=== PATIENT | male | born 1935 | race Caucasian/White ===

== ENCOUNTER 2020-05-12 23:20 | Emergency (ER) | payer MEDICARE ==
[2020-05-12] MEDS ORDERED: Mupirocin Oint 22 GM Tube TOP ONE (23:53)
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
== END 2020-05-13 00:02 | disposition home or self-care (01) ==
LOC: DL.ED 23:20
DX: S51.811A Laceration without foreign body of right forearm, initial encounter (principal); M25.422 Effusion, left elbow; I10 Essential (primary) hypertension; Z88.1 Allergy status to other antibiotic agents; Z88.5 Allergy status to narcotic agent; Z88.8 Allergy status to other drugs, medicaments and biological substances; Z88.0 Allergy status to penicillin; Z79.899 Other long term (current) drug therapy; W01.0XXA Fall on same level from slipping, tripping and stumbling without subsequent striking against object, initial encounter
CPT/HCPCS: 99282; A9270

== ENCOUNTER 2020-06-15 15:19 | Emergency (ER) | payer MEDICARE ==
--- NOTE | 2020-06-15 15:19 | EDM.PDOC ---
ED HPI GENERAL MEDICAL PROBLEM - General Chief Complaint: Upper Extremity Injury/Pain Stated Complaint: AMBULANCE Time Seen by Provider: 06/15/20 15:19 Source of Information: Reports: Patient, EMS, Old Records, RN, RN Notes Reviewed History Limitations: Reports: No Limitations - History of Present Illness INITIAL COMMENTS - FREE TEXT/NARRATIVE: Pt arrives from home by ambulance with c/o left shoulder pain sustained today while he was cleaning walkway on his porch and stepped back, missed the step, and fell about 8 inches down onto the lawn. Pt states that he takes no blood t hinner, had no LOC, did not bump head, and has no neck pain. On arrival to the ER the left shoulder was bound with a makeshift sling. Pt rates the pain to the left shoulder is 6/10, up to 8-9/10 with movement. He also has bruising to face, but states that is from a previous fall. Onset: Today, Sudden Duration: Constant Location: Reports: Upper Extremity, Left Quality: Reports: Ache Severity: Moderate Improves with: Reports: Immobilization Worsens with: Reports: Movement Context: Reports: Other (Fall) Associated Symptoms: Reports: No Other Symptoms Left Upper Shoulder Pain Score (Numeric/FACES): 6 - Related Data Allergies Allergy/AdvReac Type Severity Reaction Status Date / Time amoxicillin trihydrate AdvReac Unknown Swelling Verified 06/15/20 15:29 [From Augmentin] of legs and feet codeine AdvReac Unknown Nausea and Verified 06/15/20 15:29 Vomiting hydrochlorothiazide AdvReac Unknown muscle Verified 06/15/20 15:29 cramps and dizziness indomethacin [From Indocin] AdvReac Unknown Stomach Verified 06/15/20 15:29 pain levofloxacin [From Levaquin] AdvReac Unknown Swelling Verified 06/15/20 15:29 of legs and feet. meperidine HCl [From Demerol] AdvReac Unknown Confusion Verified 06/15/20 15:29 Penicillins AdvReac Unknown Swelling Verified 06/15/20 15:29 of legs and feet. prednisone AdvReac Unknown Blurry Verified 06/15/20 15:29 vision and restless legs. propoxyphene napsylate AdvReac Unknown Confusion Verified 06/15/20 15:29 [From Darvocet-N 100] Tetracyclines AdvReac Unknown Nausea and Verified 06/15/20 15:29 Vomiting Home Meds: Home Meds Calcium Carbonate/Vitamin D3 [Calcium 600 + Vit D Tablet] 1 tab PO DAILY 12/13/13 [History] Fluticasone Propionate [Flonase] 2 spray NASBOTH TID PRN 12/13/13 [History] Lisinopril 40 mg PO DAILY 12/13/13 [History] Multivitamin [One Daily Multivitamin] 1 tab PO DAILY 12/13/13 [History] Vitamin B Complex [B Complex] 1 tab PO DAILY 12/13/13 [History] amLODIPine [Norvasc] 5 mg PO DAILY #30 tablet 12/15/13 [Rx] Fish Oil/[place]-3 Fatty Acids [Fish Oil 1,000 MG] 1,000 mg PO DAILY 06/15/20 [History] Past Medical History HEENT History: Reports: Impaired Vision Other HEENT History: wears glasses Cardiovascular History: Reports: Hypertension Respiratory History: Reports: None Gastrointestinal History: Reports: None Genitourinary History: Reports: None Neurological History: Reports: None Psychiatric History: Reports: None Endocrine/Metabolic History: Reports: None Hematologic History: Reports: None Immunologic History: Reports: None Oncologic (Cancer) History: Reports: Other (See Below) Other Oncologic History: skin Dermatologic History: Reports: None Social & Family History - Family History Family Medical History: Noncontributory - Living Situation & Occupation Living situation: Reports: , with Spouse Occupation: Retired Review of Systems - Review of Systems Review Of Systems: Comprehensive ROS is negative, except as noted in HPI. ED EXAM, GENERAL - Physical Exam Exam: See Below Exam Limited By: No Limitations General Appearance: Alert, WD/WN, No Apparent Distress Nose: Normal Inspection, No Blood Throat/Mouth: Normal Inspection, Normal Lips, Normal Voice, No Airway Compromise Head: Atraumatic, Normocephalic, Other (Resolving bruise to face.) Neck: Normal Inspection, Supple, Non-Tender, Full Range of Motion Respiratory/Chest: No Respiratory Distress, Lungs Clear, Normal Breath Sounds, No Accessory Muscle Use, Chest Non-Tender Cardiovascular: Normal Peripheral Pulses GI/Abdominal: Normal Bowel Sounds, Soft, Non-Tender Back Exam: Normal Inspection Extremities: No Pedal Edema, Normal Capillary Refill, Arm Pain (Left shoulder tender to palpation, limited ROM due to pain, no visible bruising, swelling, or deformity.). No: Joint Swelling Neurological: Alert, Oriented, No Motor/Sensory Deficits Psychiatric: Normal Mood Skin Exam: Warm, Dry, Intact, Normal Color, No Rash ED TRAUMA EXTREMITY PROCEDURES - Splinting Left Upper Extremity Splint Site: Left shoulder Pre-Procedure NV Status: Normal Post-Procedure NV Status: Normal Splint Material: Velcro Splint Design: Sling (Left shoulder immobilizer) Applied & Form Fitted By: Nurse, Tech Provider Post-Splint Application NV Check: NV Status Normal, Good Position Complications: No Course - Vital Signs Last Recorded V/S: Last Vital Signs Temp 98.2 F 06/15/20 15:20 Pulse 61 06/15/20 15:20 Resp 16 06/15/20 15:20 BP 200/83 H 06/15/20 15:20 Pulse Ox 99 06/15/20 15:20 Departure - Departure Time of Disposition: 16:19 Disposition: Home, Self-Care 01 Condition: Good Clinical Impression: Closed fracture of proximal end of humerus Qualifiers: Encounter type: initial encounter Fracture morphology: other fracture Fracture alignment: nondisplaced Laterality: left Qualified Code(s): S42.295A - Other nondisplaced fracture of upper end of left humerus, initial encounter for closed fracture - Discharge Information *PRESCRIPTION DRUG MONITORING PROGRAM REVIEWED*: Not Applicable *COPY OF PRESCRIPTION DRUG MONITORING REPORT IN PATIENT MICHAEL: Not Applicable Instructions: Humerus Fracture Treated With Immobilization Forms: ED Department Discharge Additional Instructions: Keep the shoulder sling/immobilizer in place until seen by the orthopedic surgeon. Use Tylenol (Acetaminophen) as needed for pain. Follow directions on package label for dosing and precautions. Apply an ice pack to the left shoulder to reduce pain and swelling. Call [phone] Thursday morning to schedule an appointment with Dr. Ty at [facility] in [place]. Sepsis Event Note (ED) - Focused Exam Vital Signs: Vital Signs Temp Pulse Pulse Resp BP Pulse Ox 06/15/20 15:20 97.7 F 61 60 16 197/79 H 99
--- NOTE | 2020-06-15 16:06 | CR ---
EXAMINATION: Shoulder Comp Lt SEX: Male AGE: 84 years CLINICAL HISTORY: 84-year-old male injured fall (left shoulder injury/PAIN). INTERPRETATION: Abnormal. 1. Comminuted proximal left humeral (neck) fracture with mild impaction but anatomic alignment. 2. No sign of pathologic skeletal lesion. 3. Mild arthritic changes ipsilateral acromioclavicular joint. 4. No acromioclavicular separation or glenohumeral dislocation. 5. No fractures of the underlying ribs and left lung apex is clear. No pneumothorax. 6. No foreign bodies CONCLUSION: Mildly impacted, anatomically aligned, comminuted left HUMERAL NECK FRACTURE.
== END 2020-06-15 16:57 | disposition home or self-care (01) ==
LOC: DL.ED 15:19
DX: S42.295A Other nondisplaced fracture of upper end of left humerus, initial encounter for closed fracture (principal); I10 Essential (primary) hypertension; Z88.0 Allergy status to penicillin; Z88.6 Allergy status to analgesic agent; Z88.8 Allergy status to other drugs, medicaments and biological substances; Z88.1 Allergy status to other antibiotic agents; Z88.5 Allergy status to narcotic agent; Z79.899 Other long term (current) drug therapy; W10.9XXA Fall (on) (from) unspecified stairs and steps, initial encounter
CPT/HCPCS: 73030-LT; 99284-25

== ENCOUNTER 2021-04-28 09:56 | Emergency (ER) | payer MEDICARE ==
[2021-04-28] MEDS ORDERED: cefTRIAXone 1 GM, Lidocaine 1% 2.1 ML IM ONE ×2 (10:43)
--- NOTE | 2021-04-28 11:12 | EDM.PDOC ---
ED HPI GENERAL MEDICAL PROBLEM - General Chief Complaint: Bite:Animal, Insect Stated Complaint: INFECTED BITE Time Seen by Provider: 04/28/21 10:45 - History of Present Illness INITIAL COMMENTS - FREE TEXT/NARRATIVE: Al is an 85-year-old man who found a tick on his upper left arm 3 days ago. He states that he only been working outside that day, so he is pretty sure that the tick became attached to him on that same day. Initially, the insect bite appeared to resolve, but over the last 24 to 48 hours, he has had a large amount of redness and swelling appear around the bite. He has had no fevers or chills, no nausea or vomiting, no body aches or pains. - Related Data Allergies Allergy/AdvReac Type Severity Reaction Status Date / Time amoxicillin trihydrate AdvReac Unknown Swelling Verified 04/28/21 10:24 [From Augmentin] of legs and feet codeine AdvReac Unknown Nausea and Verified 04/28/21 10:24 Vomiting hydrochlorothiazide AdvReac Unknown muscle Verified 04/28/21 10:24 cramps and dizziness indomethacin [From Indocin] AdvReac Unknown Stomach Verified 04/28/21 10:24 pain levofloxacin [From Levaquin] AdvReac Unknown Swelling Verified 04/28/21 10:24 of legs and feet. meperidine HCl [From Demerol] AdvReac Unknown Confusion Verified 04/28/21 10:24 Penicillins AdvReac Unknown Swelling Verified 04/28/21 10:24 of legs and feet. prednisone AdvReac Unknown Blurry Verified 04/28/21 10:24 vision and restless legs. propoxyphene napsylate AdvReac Unknown Confusion Verified 04/28/21 10:24 [From Darvocet-N 100] Tetracyclines AdvReac Unknown Nausea and Verified 04/28/21 10:24 Vomiting Home Meds: Home Meds Calcium Carbonate/Vitamin D3 [Calcium 600 + Vit D Tablet] 1 tab PO DAILY 12/13/13 [History] Fluticasone Propionate [Flonase] 2 spray NASBOTH TID PRN 12/13/13 [History] Lisinopril 40 mg PO DAILY 12/13/13 [History] Multivitamin [One Daily Multivitamin] 1 tab PO DAILY 12/13/13 [History] Vitamin B Complex [B Complex] 1 tab PO DAILY 12/13/13 [History] amLODIPine [Norvasc] 5 mg PO DAILY #30 tablet 12/15/13 [Rx] Fish Oil/[place]-3 Fatty Acids [Fish Oil 1,000 MG] 1,000 mg PO DAILY 06/15/20 [History] Cefdinir [Omnicef] 300 mg PO BID 5 Days #10 cap 04/28/21 [Rx] Past Medical History HEENT History: Reports: Impaired Vision Other HEENT History: wears glasses Cardiovascular History: Reports: Hypertension Respiratory History: Reports: None Gastrointestinal History: Reports: None Genitourinary History: Reports: None Musculoskeletal History: Reports: Arthritis Neurological History: Reports: None Psychiatric History: Reports: None Endocrine/Metabolic History: Reports: None Hematologic History: Reports: None Immunologic History: Reports: None Oncologic (Cancer) History: Reports: Other (See Below) Other Oncologic History: skin Dermatologic History: Reports: None - Infectious Disease History Infectious Disease History: Reports: Chicken Pox, Measles - Past Surgical History Head Surgeries/Procedures: Reports: None Social & Family History - Family History Family Medical History: No Pertinent Family History - Tobacco Use Tobacco Use Status *Q: Never Tobacco User Second Hand Smoke Exposure: No - Caffeine Use Caffeine Use: Reports: Coffee - Recreational Drug Use Recreational Drug Use: No - Living Situation & Occupation Living situation: Reports: , with Spouse Occupation: Retired ED ROS GENERAL - Review of Systems Review Of Systems: Comprehensive ROS is negative, except as noted in HPI. ED EXAM, ANIMAL BITE - Physical Exam Exam: See Below Text/Narrative:: General: Sai is an 85-year-old man in no acute distress On his upper left arm, just above his elbow, there is an area of erythema and a little bit of induration. There is no erythema migrans noted. There is no streaking of any other part of the arm. He was given 1 g of ceftriaxone IM x1 now Course - Vital Signs Last Recorded V/S: Last Vital Signs Temp 97.8 F 04/28/21 10:20 Pulse 61 04/28/21 10:20 Resp 18 04/28/21 10:20 BP 157/80 H 04/28/21 10:20 Pulse Ox 99 04/28/21 10:20 - Orders/Labs/Meds Meds: Medications Discontinued Medications Generic Name Dose Route Start Last Admin Trade Name Freq PRN Reason Stop Dose Admin Ceftriaxone Sodium 1 gm/ 0 gm 04/28/21 10:43 04/28/21 10:58 Lidocaine HCl 2.1 ml IM 04/28/21 10:44 1 inj ONETIME ONE Administration Departure - Departure Time of Disposition: 11:10 Disposition: Home, Self-Care 01 Clinical Impression: Insect bite - wound - Discharge Information *PRESCRIPTION DRUG MONITORING PROGRAM REVIEWED*: Not Applicable *COPY OF PRESCRIPTION DRUG MONITORING REPORT IN PATIENT MICHAEL: Not Applicable Prescriptions: Cefdinir [Omnicef] 300 mg PO BID 5 Days #10 cap Instructions: Insect Bite, Adult, [id number] Referrals: PCP,None [Primary Care Provider] - Forms: ED Department Discharge Sepsis Event Note (ED) - Evaluation Sepsis Screening Result: No Definite Risk - Problem List & Annotations (1) Cellulitis SNOMED Code(s): 388590076 Code(s): L03.90 - CELLULITIS, UNSPECIFIED Status: Acute Qualifiers: Site of cellulitis: extremity Site of cellulitis of extremity: upper extremity Laterality: left Qualified Code(s): L03.114 - Cellulitis of left upper limb - Problem List Review Problem List Initiated/Reviewed/Updated: Yes - Assessment/Plan Assessment:: 1. Mild cellulitis of the right upper arm, secondary to tick bite Plan: 1. He received ceftriaxone, 1 g IM x1 now 2. I will send him home on Omnicef, 300 mg twice daily x7 days. Since this cellulitis is still close to his elbow, I think it is appropriate to put him on a 7-day course of antibiotics to ensure cellulitis does not spread to that joint
== END 2021-04-28 11:16 | disposition home or self-care (01) ==
LOC: DL.ED 09:56
DX: S40.862A Insect bite (nonvenomous) of left upper arm, initial encounter (principal); I10 Essential (primary) hypertension; Z88.0 Allergy status to penicillin; Z88.1 Allergy status to other antibiotic agents; Z88.8 Allergy status to other drugs, medicaments and biological substances; Z88.5 Allergy status to narcotic agent; W57.XXXA Bitten or stung by nonvenomous insect and other nonvenomous arthropods, initial encounter
CPT/HCPCS: 96372; 99282; 99283; J0696

== ENCOUNTER 2022-05-06 20:35 | Emergency (ER) | payer MEDICARE ==
[2022-05-06] MEDS ORDERED: Bacitracin Oint 1 GM U/D Packet TOP ONE (20:58)
[2022-05-06] MEDS ORDERED: Bacitracin Oint 1 GM U/D Packet ONE (20:59)
== END 2022-05-06 21:20 | disposition home or self-care (01) ==
LOC: DL.ED 20:35
DX: S51.811A Laceration without foreign body of right forearm, initial encounter (principal); I10 Essential (primary) hypertension; Z88.0 Allergy status to penicillin; Z88.5 Allergy status to narcotic agent; Z88.8 Allergy status to other drugs, medicaments and biological substances; Z79.899 Other long term (current) drug therapy; W20.8XXA Other cause of strike by thrown, projected or falling object, initial encounter
CPT/HCPCS: 99283

== ENCOUNTER 2022-05-20 18:19 | Emergency (ER) | payer MEDICARE ==
[2022-05-20] MEDS ORDERED: Ondansetron 4 MG Tab.DIS PO ONE (18:20)
[2022-05-20] MEDS ORDERED: Sodium Chloride 0.9% 10 ML Syringe FLUSH PRN (18:38)
[2022-05-20] MEDS ORDERED: Ondansetron 4 MG/2 ML SDV IVPUSH ONE (18:45)
[2022-05-20] MEDS ORDERED: Sodium Chloride 0.9% 1,000 ML IV ONE (18:52)
[2022-05-20 19:36] LABS: ANION GAP 14.2 mEq/L (7-13); CHLORIDE,CL 106 mmol/L (98-107); SODIUM,NA 143 mmol/L (136-145)
[2022-05-20 19:42] LABS: ESTIMATED GFR 67 mL/min (>=60)
[2022-05-20] MEDS ORDERED: Ondansetron 4 MG Tab.DIS ONE (20:40)
== END 2022-05-20 20:49 | disposition home or self-care (01) ==
LOC: DL.ED 18:19
DX: K52.9 Noninfective gastroenteritis and colitis, unspecified (principal); I10 Essential (primary) hypertension; Z88.0 Allergy status to penicillin; Z88.5 Allergy status to narcotic agent; Z88.8 Allergy status to other drugs, medicaments and biological substances; Z88.1 Allergy status to other antibiotic agents; Z79.899 Other long term (current) drug therapy; Z20.822 Contact with and (suspected) exposure to COVID-19
CPT/HCPCS: 36415; 80053; 83605; 83690; 83735; 83880; 84443; 84484; 85025; 86140; 93005; 93010; 96361; 96374; 99284; 99284-25; A9270-GY; J2405; J3490; J7030; U0002

== ENCOUNTER 2022-11-04 08:11 | Emergency (ER) | payer MEDICARE ==
[2022-11-04 08:46] LABS: PTT,PARTIAL THROMBOPLSTIN TIME 26.8 SEC (22.0-34.0)
[2022-11-04 08:47] LABS: ANION GAP 11.7 mEq/L (7-13); CHLORIDE,CL 102 mmol/L (98-107); ESTIMATED GFR 58 mL/min (>=60); SODIUM,NA 137 mmol/L (136-145)
[2022-11-04] MEDS ORDERED: Iopamidol 755 Mg/ML 100 ML Bottle IVPUSH ONE (10:42)
== END 2022-11-04 11:50 | disposition home or self-care (01) ==
LOC: DL.ED 08:11
DX: H53.8 Other visual disturbances (principal); I10 Essential (primary) hypertension; Z88.5 Allergy status to narcotic agent; Z88.0 Allergy status to penicillin; Z88.8 Allergy status to other drugs, medicaments and biological substances; Z79.899 Other long term (current) drug therapy; Z86.73 Personal history of transient ischemic attack (TIA), and cerebral infarction without residual deficits
CPT/HCPCS: 36415; 70450; 70496; 70498; 80053; 81003; 83605; 85025; 85610; 85730; 86140; 93005; 93010; 99284; 99285; Q9967

== ENCOUNTER 2022-11-10 13:02 | Emergency (ER) | payer MEDICARE | END 2022-11-10 14:45 | disposition home or self-care (01) | LOC: DL.ED 13:02 | DX: M79.651 Pain in right thigh (principal); M79.652 Pain in left thigh; T46.6X5A Adverse effect of antihyperlipidemic and antiarteriosclerotic drugs, initial encounter; I10 Essential (primary) hypertension; Z88.8 Allergy status to other drugs, medicaments and biological substances; Z88.1 Allergy status to other antibiotic agents; Z88.5 Allergy status to narcotic agent; Z88.0 Allergy status to penicillin; Z79.899 Other long term (current) drug therapy | CPT/HCPCS: 36415; 80053; 82550; 85025; 86140; 99284 ==